=== PATIENT | male | born 2000 | race Caucasian/White ===

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

== ENCOUNTER 2022-12-28 12:47 | Emergency (ER) | payer OTHER ==
[~2022-12-28] VITALS: Ht 182.9 cm; Wt 54.4 kg
[2022-12-28 13:28] LABS: BASOPHILS % (AUTO) 0.4 % (0.0-2.0); EOSINOPHILS # (AUTO) 0.5 K/uL (0.0-0.4); EOSINOPHILS % (AUTO) 3.6 % (0.0-4.0); HEMOGLOBIN 14.8 g/dL (14.0-18.0); LYMPHOCYTES # (AUTO) 2.7 K/uL (1.0-5.5); LYMPHOCYTES % (AUTO) 21.5 % (20.5-51.5); MEAN CORPUSCULAR HEMOGLOBIN 31 pg (27-31); MEAN CORPUSCULAR HGB CONC 34 % (32-36); MEAN CORPUSCULAR VOLUME 92 fL (79.0-98.0); MONOCYTES # (AUTO) 1.1 K/uL (0.0-1.0); MONOCYTES % (AUTO) 8.6 % (1.7-9.3); NEUTROPHILS # (AUTO) 8.3 K/uL (1.8-7.7); NEUTROPHILS % (AUTO) 65.9 % (40.0-70.0); PLATELET COUNT (AUTO) 309 K/uL (130-430); RED BLOOD CELL COUNT(AUTO) 4.77 MIL/uL (4.2-6.2); RED CELL DISTRIBUTION WIDTH 14.1 % (9.0-15.0); WHITE BLOOD COUNT (AUTO) 12.6 K/uL (4.8-10.8)
[2022-12-28 13:42] LABS: ANION GAP 16 (5-15); CALCIUM 9.3 mg/dL (8.4-11.0); CARBON DIOXIDE 22 mmol/L (23-29); CHLORIDE 100 mmol/L (98-107); CREATININE 0.72 mg/dL (0.55-1.30); GFR AFRICAN AMERICAN 174 mL/min (>90); GLUCOSE 110 mg/dL (74-106); POTASSIUM 3.1 mmol/L (3.5-5.1); SODIUM SERUM 138 mmol/L (136-145); UREA NITROGEN, BLOOD 15 mg/dL (8-21)
[2022-12-28 13:45] LABS: GFR NON AFRICAN-AMERICAN 144 mL/min (>90)
[2022-12-28 13:47] LABS: ACETAMINOPHEN < 1 ug/mL (1-30); ALANINE AMINOTRANSFERASE 10 U/L (12-78); ALBUMIN 3.9 g/dL (3.4-4.8); ALCOHOL, BLOOD 41 mg/dL (<10); ASPARTATE AMINOTRANSFERASE 13 U/L (10-37); CREATINE KINASE, TOTAL 140 U/L (39-308); SALICYLATE 1 mg/dL (3-30); TOTAL BILIRUBIN 0.3 mg/dL (0.0-1.0); TOTAL PROTEIN, SERUM 7.5 g/dL (6.4-8.3)
[2022-12-28 15:07] VITALS: BP_SYST 105; PULSE 85; RESP 16; TEMP 98.2; O2SAT 98
[2022-12-28] MEDS ORDERED: RISP1TAB44 PO (15:14)
[2022-12-28] MEDS ORDERED: NACL 0.9% 1,000 ML IV ONE (16:45)
[2022-12-28 19:11] LABS: BARBITURATE, URINE NEGATIVE (NEG <=200); BENZODIAZEPINE, URINE NEGATIVE (NEG <=150); COCAINE, URINE POSITIVE (NEG <=150); METHAMPHETAMINES SCREEN,URINE NEGATIVE (NEG <=500); URINE AMPHETAMINE NEGATIVE (NEG <=500); URINE METHADONE NEGATIVE (NEG <=200)
[2022-12-28 19:12] LABS: CANNABINOID, URINE POSITIVE (NEG <=50); OPIATE, URINE NEGATIVE (NEG <=100); PHENCYCLIDINE SCREEN,URINE NEGATIVE (NEG <=25); UR TRICYCLIC ANTIDEPRESSANTS NEGATIVE (NEG <=300); URINE OXYCODONE SCREEN NEGATIVE (NEG <=100); URINE PROPOXYPHENE SCREEN NEGATIVE (NEG <=300)
[2022-12-29] MEDS ORDERED: NACL 0.9% 1,000 ML IV ONE
[2022-12-29 05:16] VITALS: BP_SYST 96; PULSE 66; RESP 18; TEMP 98; O2SAT 97
== END 2022-12-29 05:16 ==
LOC: SED 12:47
DX: T14.91XA Suicide attempt, initial encounter (principal); T46.5X1A Poisoning by other antihypertensive drugs, accidental (unintentional), initial encounter; Z88.1 Allergy status to other antibiotic agents; Z79.899 Other long term (current) drug therapy; Z20.822 Contact with and (suspected) exposure to COVID-19; Y92.89 Other specified places as the place of occurrence of the external cause
CPT/HCPCS: 99285; 71045; 87426; 80307; 80053; 82550; 85025; 36415; 93005; 96360; J7030 ×2; G0480; G0481; G0482

== ENCOUNTER 2023-07-29 10:20 | Emergency (ER) | payer OTHER ==
[~2023-07-29] VITALS: Ht 180.3 cm; Wt 63.5 kg
[~2023-07-29 10:20] MED LIST: RISP1TAB44 PO
[2023-07-29 10:23] VITALS: BP_SYST 137; PULSE 125; RESP 20; TEMP 97.3; O2SAT 100
[2023-07-29 12:07] VITALS: BP_SYST 137; PULSE 125; RESP 20; TEMP 97.3; O2SAT 96
== END 2023-07-29 12:07 ==
LOC: SED 10:20
DX: S00.31XA Abrasion of nose, initial encounter (principal); F14.90 Cocaine use, unspecified, uncomplicated; Z88.1 Allergy status to other antibiotic agents; X58.XXXA Exposure to other specified factors, initial encounter; Y93.89 Activity, other specified; Y92.89 Other specified places as the place of occurrence of the external cause; Y99.8 Other external cause status
CPT/HCPCS: 36415; 84484; 93005; 99284